=== PATIENT | male | born 1990 | race Caucasian/White ===

== ENCOUNTER 2023-11-13 00:49 | Inpatient (IN) ==
--- NOTE | 2023-11-13 01:16 | Emergency Department Note ---
History of Present Illness General Chief complaint: Abdominal Pain Stated complaint: JAUNDICE, ABDOMINAL PAIN Time Seen by Provider: 11/13/23 00:59 History of Present Illness Maximum Pain Intensity: 2 This 33-year-old male who drinks daily and stopped drinking alcohol 4 days ago presents ER complaining of fatigue, jaundice and abdominal fullness with diarrhea. Patient denies chest pain, dyspnea, fever, chills, cough, congestion, flulike illness. No black or blood in the stool. He does vape and uses medical marijuana. No other drug use. No Tylenol ingestion. Home Medications Medication Instructions Recorded Confirmed Type ascorbic acid (vitamin C) 1,000 mg 1 g PO QAM 11/13/23 11/13/23 History tablet (Vitamin C) cholecalciferol (vitamin D3) 50 50 mcg PO DAILY 11/13/23 11/13/23 History mcg (2,000 unit) capsule (Vitamin D3) citalopram 40 mg tablet 40 mg PO QAM 11/13/23 11/13/23 History clonazepam 1 mg tablet 0.5 - 1 mg PO DIRECTED 11/13/23 11/13/23 History dextroamphetamine-amphetamine ER 30 mg PO QAM 11/13/23 11/13/23 History 30 mg 24hr capsule,extend release diphenhydramine HCl 25 mg tablet 25 - 50 mg PO HS PRN Sleep 11/13/23 11/13/23 History (Benadryl Allergy) multivitamin 1 tab PO DAILY 11/13/23 11/13/23 History Allergies Allergy/AdvReac Type Severity Reaction Status Date / Time No Known Allergies Allergy Unverified 11/13/23 02:49 Past Med/Surg History Problem List (Updated 11/13/23 @ 02:36 by Adali Robin PA-C) Hypomagnesemia (Acute) Acute hypokalemia (Acute) Acute alcoholism (Acute) Hyperbilirubinemia (Acute) No significant past surgical history ADD (attention deficit disorder) Dental abscess (Acute) Social History Smoking Status: Current every day smoker Tobacco Type: E-cigarettes / Vaping Preferred Language: Cymro marital status: Single Feels Safe at Home: Yes Review of Systems A total of 10 systems reviewed and were otherwise negative Physical Exam Vital Signs Vital Signs - 24 hr 11/13/23 00:50 11/13/23 01:10 11/13/23 01:27 Temperature 36.5 C Temperature Source Temporal Artery Scan Pulse Rate 96 H 91 H Pulse Rate [Apical] Pulse Rhythm [Apical] Pulse Strength [Apical] Respiratory Rate 18 Respiratory Effort / Characteristics Non-Labored Spontaneous Respiratory Depth Normal Respiratory Pattern Regular Blood Pressure 143/82 H Blood Pressure [Right Arm] Blood Pressure Mean 102 Blood Pressure Mean [Right Arm] Blood Pressure Position Sitting Blood Pressure Position [Right Arm] Pulse Oximetry 95 98 Oxygen Delivery Method Room Air Room Air Sepsis Recent Fever Within 48 Hours No Sepsis New/Unexplained Change in Mental Status N/A Sepsis Action Taken by Nursing No Action Required 11/13/23 02:50 Temperature Temperature Source Pulse Rate Pulse Rate [Apical] 87 Pulse Rhythm [Apical] Regular Pulse Strength [Apical] Normal Respiratory Rate 16 Respiratory Effort / Characteristics Non-Labored Spontaneous Respiratory Depth Normal Respiratory Pattern Regular Blood Pressure Blood Pressure [Right Arm] 125/94 Blood Pressure Mean Blood Pressure Mean [Right Arm] 104 Blood Pressure Position Blood Pressure Position [Right Arm] Lying Pulse Oximetry 97 Oxygen Delivery Method Room Air Sepsis Recent Fever Within 48 Hours Sepsis New/Unexplained Change in Mental Status Sepsis Action Taken by Nursing VITALS: Vitals are noted on the nurse's note and reviewed by myself. Vital signs stable. GENERAL: Jaundiced male, in no acute distress, nondiaphoretic, well-developed well-nourished. SKIN: Capillary reflex less than 2 seconds. HEENT: Normocephalic. PERRLA. EOMI. Nares patent. Mucous membranes moist. Neck is supple without nuchal rigidity. HEART: Regular rate and rhythm LUNGS: Clear to auscultation bilaterally without wheezes, rales or rhonchi. No retractions or accessory muscle use. ABDOMEN: Positive bowel sounds x 4. Normal tympanic percussion. Soft, nontender, without masses. Juan sign negative. No guarding or rebound tenderness. no CVA tenderness MUSCULOSKELETAL: No gross musculoskeletal defects. NEURO: Patient was alert and oriented to person place and time. No focal neurological deficits. Course Administered Medications Multivitamins 10 ml/ Thiamine HCl 100 mg/ Folic Acid 1 mg/Sodium Chloride 1,011.2 mls @ 500 mls/hr IV .Q2H2M ONE Stop: 11/13/23 03:11 Last Admin: 11/13/23 02:19 Dose: 500 mls/hr Documented By: KULDEEP Magnesium Sulfate/Dextrose (Magnesium Sulfate / D5w) 1 gm in 100 mls @ 100 mls/hr IV Q1H GUME Stop: 11/13/23 04:23 Last Admin: 11/13/23 02:40 Dose: 100 mls/hr Documented By: KULDEEP Potassium Chloride (K [place] / Wtr) 10 meq in 100 mls @ 100 mls/hr IV Q1H GUME Stop: 11/13/23 04:29 Last Admin: 11/13/23 02:40 Dose: 100 mls/hr Documented By: KULDEEP Discontinued Medications Sodium Chloride (Nss) 1,000 mls @ 999 mls/hr IV .Q1H1M GUME Stop: 11/13/23 02:15 Last Infusion: 11/13/23 02:20 Dose: Infused Documented By: Admin: 11/13/23 01:19 Dose: 999 mls/hr Documented By: BRANDON Pantoprazole Sodium 40 mg/ (Syringe) 10 mls @ 5 mls/min IV NOW ONE Stop: 11/13/23 01:17 Last Admin: 11/13/23 02:20 Dose: 5 mls/min Documented By: KULDEEP Ioversol (Optiray 320 100ml) 100 ml IV ONCE ONE Stop: 11/13/23 01:46 Last Admin: 11/13/23 01:46 Dose: 93 ml Documented By: KARSON Lorazepam (Lorazepam 1 Mg/1 Ml Syr Ed Inj Use) 1 mg IV ONE STA Stop: 11/13/23 01:11 Last Admin: 11/13/23 01:18 Dose: 1 mg Documented By: BRANDON Nicotine (Nicotine 21 Mg/24 Hr Tdsy) 1 patch TD NOW STA Stop: 11/13/23 01:11 Last Admin: 11/13/23 01:18 Dose: 1 patch Documented By: BRANDON Potassium Chloride (Potassium Chloride Crtab 20 Meq Tabcr) 40 meq PO NOW STA Stop: 11/13/23 02:25 Last Admin: 11/13/23 02:39 Dose: 40 meq Documented By: KULDEEP Critical Care Time Critical Care Time: Yes Total Critical Care Time: 35 I have personally spent 35 minutes of critical care time in the direct management of this patient. This includes bedside care, interpretation of diagnostic studies, and testing, discussion with consultants, patient, and family members, and other required patient management activities. This 35 minutes is in excess of all separately billable procedures. Medical Decision Making Medical Records Attestation: I reviewed the patient's medical records. Home Medications Current Medication List: was personally reviewed by me Laboratory Data Attestation: I reviewed the patient's lab results. 11/13/23 01:14 11/13/23 01:14 Lab Results 11/13/23 11/13/23 11/13/23 Range/Units 01:14 01:25 02:22 WBC 11.57 H (4.8-10.8) K/ul RBC 3.18 L (4.70-6.10) M/uL Hgb 10.8 L (14.0-18.0) g/dl POC Hgb 11.6 L (14.0-18.0) g/dl Hct 31.6 L (42.0-52.0) % POC Hct 34 L (42-52) % MCV 99.4 (80.0-100.0) fL MCH 34.0 (25.0-34.0) pg MCHC 34.2 (32.0-36.0) g/dL RDW Std Deviation 66.8 H (36.4-46.3) fL RDW Coeff of Mirna 19.2 H (11.5-14.5) % Plt Count 224 (130-400) K/uL MPV 12.8 H (9.4-12.4) fL Immature Gran % (Auto) 5.0 % Neut % (Auto) 61.2 % Lymph % (Auto) 19.0 % [place] % (Auto) 12.7 % Eos % (Auto) 0.8 % Baso % (Auto) 1.3 % Neut # (Auto) 7.08 H (1.40-6.50) K/uL Lymph # (Auto) 2.20 (1.20-3.40) K/uL [place] # (Auto) 1.47 H (0.11-0.59) K/uL Eos # (Auto) 0.09 (0.00-0.50) K/uL Baso # (Auto) 0.15 (0.00-0.20) K/uL Immature Gran # (Auto) 0.58 H (0.01-0.20) K/uL Absolute Nucleated RBC 0.25 H (0.00-0.12) K/uL Nucleated RBC % (auto) 2.2 % Polychromasia 1+ Anisocytosis Present Pappenheimer Bodies 1+ Target Cells 1+ PT 13.0 H (9.0-12.0) Seconds INR 1.2 H (0.9-1.1) APTT 26 (21-31) Seconds PTT Ratio 1.0 POC Sodium 135 (135-144) mmol/L Sodium 132 L (136-145) mmol/L POC Potassium 3.0 L (3.3-5.0) mmol/L Potassium 2.8 L (3.5-5.1) mmol/L POC Chloride 100 L (101-112) mmol/L Chloride 95 L (98-107) mmol/L Carbon Dioxide 25 (21-32) mmol/L POC Total CO2 24 (24-31) mmol/L Anion Gap 12 H (3-11) POC Anion Gap 16.0 (16-25) mmol/L POC BUN 6 L (7-18) mg/dl BUN 9 (6-23) mg/dl Creatinine TNP POC Creatinine 0.7 (0.6-1.3) mg/dl Est Cr Clr Drug Dosing Not Reportable Est GFR ( Amer) Not Reportable Est GFR (Non-Af Amer) Not Reportable BUN/Creatinine Ratio TNP Glucose 108 H (70-99(Fasting)) mg/dl POC Glucose (other) 118 H (70-99) mg/dl Lactate 1.1 (0.4-2.0) mmol/L Calcium 7.8 L (8.6-10.3) mg/dl POC Ioniz Calcium Aundrea 0.93 L (1.12-1.32) mmol/l Magnesium 1.2 L (1.7-2.4) mg/dl Total Bilirubin 33.3 H (0.2-1.0) mg/dl AST 224 H (13-39) U/L ALT 114 H (7-52) U/L Alkaline Phosphatase TNP Total Creatine Kinase 121 (30-223) U/L Troponin I High Sens 12.3 (0-20) pg/ml Total Protein 6.1 (6.0-8.3) gm/dl Albumin 3.6 (3.4-5.0) gm/dl Globulin 2.5 (2.5-4.0) gm/dl Albumin/Globulin Ratio 1.4 (0.9-2) TSH 6.345 H (0.300-4.500) uIu/ml Free T4 1.12 (0.61-1.60) ng/dl Urine Color Dark Yellow Urine Appearance Cloudy A (Clear) Urine pH 6.5 (4.5-7.5) Ur Specific [place] 1.026 (1.000-1.030) Urine Protein 1+ H (Negative) Urine Glucose (UA) Negative (Negative) Urine Ketones Negative (Negative) Urine Blood Negative (Negative) Urine Nitrite Positive A (Negative) Urine Bilirubin 3+ H (Negative) Urine Urobilinogen Negative (Negative) Ur Leukocyte Esterase 1+ H (Negative) Urine WBC (Auto) 0-5 (0-5) /hpf Urine RBC (Auto) 0-2 (0-4) /hpf U Hyaline Cast (Auto) 0-2 (0-5) /lpf U Epithel Cells (Auto) 6-10 (0-5) /lpf Urine Bacteria (Auto) 1+ H (Negative) Ur Renal Epithelial Cell Present A (None Presnt) /lpf Urine Mucus Present A (None Prsent) Salicylates TNP Acetaminophen TNP Ethyl Alcohol mg/dL < 10.0 (<10.0) mg/dl Monoscreen Negative (Negative) Imaging Data Attestation: I personally reviewed and interpreted this imaging study as follows: Radiologist's Impression: Abdomen/Pelvis CT 11/13/23 01:10 Exam(s): CT ABDOMEN + PELVIS With Contrast IV Amt: 93 ml optiray 320 EXAM: CT Abdomen and Pelvis With Intravenous Contrast CLINICAL HISTORY: Reason for exam: jaundice, abd pain. TECHNIQUE: Axial computed tomography images of the abdomen and pelvis with intravenous contrast. Automated exposure control was utilized for the study. A dose lowering technique was utilized adhering to the principles of ALARA. CONTRAST: Patient received 93 ml optiray 320 of IV contrast COMPARISON: No relevant prior studies available. FINDINGS: Lung bases: Unremarkable. No mass. No consolidation. ABDOMEN: Liver: Hepatic steatosis. Gallbladder and bile ducts: Contracted gallbladder. No calcified stones. No ductal dilation. Pancreas: Unremarkable. No mass. No ductal dilation. Spleen: Unremarkable. No splenomegaly. Adrenals: Unremarkable. No mass. Kidneys and ureters: Unremarkable. No solid mass. No hydronephrosis. Stomach and bowel: Unremarkable. No obstruction. No mucosal thickening. PELVIS: Appendix: Normal appendix. Bladder: Unremarkable. No mass. Reproductive: Unremarkable as visualized. ABDOMEN and PELVIS: Intraperitoneal space: Unremarkable. No free air. No significant fluid collection. Bones/joints: No acute fracture. No dislocation. Soft tissues: Unremarkable. Vasculature: Unremarkable. No abdominal aortic aneurysm. Lymph nodes: Unremarkable. No enlarged lymph nodes. IMPRESSION: No acute findings in the abdomen or pelvis. Electronically signed by: Isaias Mata MD 11/13/23 02:48 AM [place] Narrative Prior records/ancillary studies reviewed and summarized above. Nursing notes reviewed. Additional history obtained from family. The patient's history was concerning for jaundice and abdominal fullness and nonalcoholic. Differential diagnosis: Etiologies such as liver failure, metabolic, infection, hypo/hyperglycemia, electrolyte abnormalities, cardiac sources, intracerebral event, toxicologic, neurologic, as well as others were entertained. Physical examination: As above. ER treatment provided: IV Lock An order was placed for continuous cardiac monitoring. The monitor shows a rate of 60-100 with a sinus rhythm per my interpretation. Protonix, banana bag, fluids, Ativan ordered Potassium and magnesium were replaced On reassessment the patient felt better. Diagnostics interpretation by me: ECG: Ordered for weakness EKG: Poor baseline, normal sinus, normal intervals, no acute ST-T wave changes. Impression normal sinus rhythm independently interpreted by myself The labs Independently Interpreted by myself revealed low magnesium Hypokalemia Mild anemia Elevated LFTs INR 1.2 Imaging studies: Chest x-ray with no acute consolidation, pneumothorax or free air per my independent interpretation CT as above MELD-Na score is 25 which is 14 to 15% 90-day mortality Consultation: A consultation was placed with the hospitalist. The case was discussed and diagnostics were reviewed. The patient was evaluated in the ER for further treatment. Exam and history seem consistent with hyperbilirubinemia with concerns for developing liver failure. MELD score was 25. Medicine was consulted and case discussed. Patient will be admitted to the medical service. Electrolytes were replaced as above. Patient was hydrated as above. Patient is agreeable treatment plan of admission. By the evaluation outlined above emergent etiologies such as infection, cardiac sources, intracerebral event, neurologic, abnormalities blood glucose, as well as others were deemed relatively unlikely. The pt informed about the findings as listed above. All questions were answered and pleased with the treatment. The chart was completed utilizing [employer] Speech voice recognition software. Grammatical errors, random word insertions, pronoun errors, and incomplete sentences are an occassional consequence of this system due to software limitations, ambient noise, and hardware issues. Any formal questions or concerns about the content, text, or information contained within the body of this dictation should be directly addressed to the physician child care assistant for clarification. Impression & Plan Hyperbilirubinemia, Acute alcoholism, Acute hypokalemia, Hypomagnesemia Discharge Plan Visit Data Chief Complaint: Abdominal Pain Stated Complaint: JAUNDICE, ABDOMINAL PAIN ED Provider: Mandi Choi ED Midlevel Provider: Adali Robin Discharge Problem: Hyperbilirubinemia, Acute alcoholism, Acute hypokalemia, Hypomagnesemia Patient Disposition: Admitted As Inpatient Condition: Fair Forms Stand Alone Forms: [facility] Prescriptions Prescriptions: No Action multivitamin Tablet 1 tab PO DAILY ascorbic acid (vitamin C) [Vitamin C] 1,000 mg Tablet 1 g PO QAM citalopram 40 mg tablet 40 mg PO QAM clonazepam 1 mg tablet 0.5 - 1 mg PO DIRECTED Rx Instructions: Take 1 tab AM & PM, TAKE 0.5 TAB @ NOON dextroamphetamine-amphetamine 30 mg capsule,extended release 24hr 30 mg PO QAM cholecalciferol (vitamin D3) [Vitamin D3] 50 mcg (2,000 unit) Capsule 50 mcg PO DAILY diphenhydramine HCl [Benadryl Allergy] 25 mg Tablet 25 - 50 mg PO HS PRN (Reason: Sleep) Referrals Referrals: PCP,NO [Physician] -
[2023-11-13] MEDS: NICOTINE 21 MG/24 HR TDSY TD STA (01:18)
[2023-11-13] MEDS: LORazepam 1 MG/1 ML SYR ED Inj Use IV STA (01:18)
[2023-11-13] MEDS: SODIUM CHLORIDE 0.9% 1,000 ML IV SCH ×2 (01:19→05:37)
[2023-11-13 01:39] LABS: iSTAT Creatinine 0.7 mg/dl (0.6-1.3); iSTAT Hemoglobin 11.6 g/dl (14.0-18.0); iSTAT Ionized Calcium 0.93 mmol/l (1.12-1.32)
[2023-11-13] MEDS: OPTIRAY 320 100ml IV ONE (01:46)
[2023-11-13 02:16] LABS: Alanine Aminotransferase 114 U/L (7-52); Albumin Globulin Ratio 1.4 (0.9-2); Albumin Level 3.6 gm/dl (3.4-5.0); Anion Gap 12 (3-11); Aspartate Aminotransferase 224 U/L (13-39); Bilirubin,Total 33.3 mg/dl (0.2-1.0); Calcium 7.8 mg/dl (8.6-10.3); Carbon Dioxide 25 mmol/L (21-32); Chloride 95 mmol/L (98-107); Creatine Kinase 121 U/L (30-223); Globulin 2.5 gm/dl (2.5-4.0); Glucose 108 mg/dl (70-99(Fasting)); Potassium 2.8 mmol/L (3.5-5.1); Sodium 132 mmol/L (136-145); Thyroid Stimulating Hormone 6.345 uIu/ml (0.300-4.500); Total Protein 6.1 gm/dl (6.0-8.3); Troponin I High Sensitivity 12.3 pg/ml (0-20)
[2023-11-13] MEDS: MULTI-VITAMIN INFUSION 10 ML, THIAMINE HCL 100 MG, FOLIC ACID 1 MG in SODIUM CHLORIDE 0... IV ONE (02:19)
[2023-11-13] MEDS: PANTOprazole 40 MG in SYRINGE 0 ML IV ONE (02:20)
[2023-11-13 02:25] LABS: Anisocytosis Present; Basophils # (auto) 0.15 K/uL (0.00-0.20); Basophils % (auto) 1.3 %; Eosinophils # (auto) 0.09 K/uL (0.00-0.50); Eosinophils % (auto) 0.8 %; Hematocrit (blood only) 31.6 % (42.0-52.0); Hemoglobin 10.8 g/dl (14.0-18.0); Immature Granulocytes # (auto) 0.58 K/uL (0.01-0.20); Mean Corpuscular Hgb Conc 34.2 g/dL (32.0-36.0); Mean Corpuscular Volume 99.4 fL (80.0-100.0); Mean Platelet Volume 12.8 fL (9.4-12.4); Monocytes # (auto) 1.47 K/uL (0.11-0.59); Monocytes % (auto) 12.7 %; Neutrophils # (auto) 7.08 K/uL (1.40-6.50); Neutrophils % (auto) 61.2 %; Nucleated RBC # (auto) 0.25 K/uL (0.00-0.12); Nucleated RBC % (auto) 2.2 %; Pappenheimer Bodies 1+; Platelet Count 224 K/uL (130-400); Polychromasia 1+; RDW Coefficient of Variation 19.2 % (11.5-14.5); RDW Standard Deviation 66.8 fL (36.4-46.3); Red Blood Count 3.18 M/uL (4.70-6.10); Target Cells 1+; White Blood Count 11.57 K/ul (4.8-10.8)
[2023-11-13 02:27] LABS: Appearance Urine Cloudy (Clear); Bilirubin Urine 3+ (Negative); Blood Urine Negative (Negative); Color Urine Dark Yellow; Glucose Urine UA Negative (Negative); Ketones Urine Negative (Negative); Leukocyte Esterase Urine 1+ (Negative); Nitrite Urine Positive (Negative); Protein Urine 1+ (Negative); Specific Gravity Urine 1.026 (1.000-1.030); Urobilinogen Urine Negative (Negative); pH Urine 6.5 (4.5-7.5)
[2023-11-13 02:37] LABS: INR 1.2 (0.9-1.1); Partial Thromboplastin Time 26 Seconds (21-31)
[2023-11-13 02:39] LABS: Cast Urine Automated 0-2 /lpf (0-5); RBC Urine Automated 0-2 /hpf (0-4); WBC Urine Automated 0-5 /hpf (0-5)
[2023-11-13] MEDS: POTASSIUM CHLORIDE CRTAB 20 MEQ TABCR PO STA (02:39)
[2023-11-13 02:40] LABS: Bacteria Urine Automated 1+ (Negative); Mucus Urine Present (None Prsent); Renal Epithelial Cells Urine Present /lpf (None Presnt)
[2023-11-13] MEDS: POTASSIUM CHLORIDE / WTR 10 MEQ/100 ML PLCT IV SCH ×2 (02:40→05:40)
[2023-11-13] MEDS: MAGNESIUM SULFATE / D5W 1 GM/100 ML BAG IV SCH (02:40)
--- NOTE | 2023-11-13 02:49 | CT Scan Report ---
Exam(s): CT ABDOMEN + PELVIS With Contrast IV Amt: 93 ml optiray 320 EXAM: CT Abdomen and Pelvis With Intravenous Contrast CLINICAL HISTORY: Reason for exam: jaundice, abd pain. TECHNIQUE: Axial computed tomography images of the abdomen and pelvis with intravenous contrast. Automated exposure control was utilized for the study. A dose lowering technique was utilized adhering to the principles of ALARA. CONTRAST: Patient received 93 ml optiray 320 of IV contrast COMPARISON: No relevant prior studies available. FINDINGS: Lung bases: Unremarkable. No mass. No consolidation. ABDOMEN: Liver: Hepatic steatosis. Gallbladder and bile ducts: Contracted gallbladder. No calcified stones. No ductal dilation. Pancreas: Unremarkable. No mass. No ductal dilation. Spleen: Unremarkable. No splenomegaly. Adrenals: Unremarkable. No mass. Kidneys and ureters: Unremarkable. No solid mass. No hydronephrosis. Stomach and bowel: Unremarkable. No obstruction. No mucosal thickening. PELVIS: Appendix: Normal appendix. Bladder: Unremarkable. No mass. Reproductive: Unremarkable as visualized. ABDOMEN and PELVIS: Intraperitoneal space: Unremarkable. No free air. No significant fluid collection. Bones/joints: No acute fracture. No dislocation. Soft tissues: Unremarkable. Vasculature: Unremarkable. No abdominal aortic aneurysm. Lymph nodes: Unremarkable. No enlarged lymph nodes. IMPRESSION: No acute findings in the abdomen or pelvis. Electronically signed by: Isaias Mata MD 11/13/23 02:48 AM
[2023-11-13 03:00] LABS: T4 Free Thyroxine 1.12 ng/dl (0.61-1.60)
[2023-11-13 03:02] LABS: Blood Urea Nitrogen 9 mg/dl (6-23); Magnesium 1.2 mg/dl (1.7-2.4)
[2023-11-13 03:17] LABS: Amphetamines+Metham, Urine Pos (Neg); Barbiturates, Urine Neg (Neg); Benzodiazepine, Urine Neg (Neg); Cocaine, Urine Neg (Neg); Fentanyl, Urine Neg (Neg); MDMA (Ecstacy), Urine Pos (Neg); Marijuana, Urine Pos (Neg); Methadone, Urine Neg (Neg); Opiate, Urine Neg (Neg); Phencyclidine, Urine Neg (Neg)
--- NOTE | 2023-11-13 04:21 | History & Physical Report ---
Date of Service November 13, 2023 Assessment & Plan (1) Acute alcoholic liver disease: Plan: 33-year-old male with past medical history significant for major depression, ongoing alcoholism, PTSD, panic disorder, social anxiety disorder, GERD anxiety disorder, concentration deficit, history of opioid use history of drugs in the past and was on Suboxone which was tapered off two and half years ago comes with abdominal pain going on for about 1 month and also noticed jaundice for last 1 week and feeling weak ,fatigue ,tired and came to ER and found to have total bilirubin 33.3, AST 224, ALT 114, UA is positive, potassium 2.[address] abdomen pelvis with IV contrast shows hepatic steatosis otherwise unremarkable study. Patient denies any headache. No dizziness. Vision is okay. No runny nose. No cough. No sore throat. Currently no chest pain or shortness of breath. No nausea. Some abdominal discomfort. Has chronic diarrhea. A week ago he had black stools. States has some difficulty micturition says he noticed Some blood in the urine. Afebrile. States he is drinking alcohol since age of 15 on and off. But since last 2.5 years ago when he was tapered off Suboxone he started drinking heavily. Currently drinks 6 beers or half bottle of vodka daily. Vapes every day. Has medical marijuana. States he stopped drinking 4 days ago. Says when he came into the ER he was slightly shaky and got Ativan. Mother is in the room. Alert and oriented x 3 and able to give history. Possible alcoholic liver disease Acute liver injury Most likely from alcoholism as AST almost double than ALT ,and AST and ALT less than 500 and ongoing alcoholism Total bilirubin 33.3 AST 224, ALT 114 INR 1.2 MELD score 22 Discriminant function 38 Denies taking any Tylenol. f/u Tylenol level Empirically ordered N-acetylcysteine CT abdomen pelvis with IV contrast shows hepatic steatosis otherwise unremarkable Follow-up acute hepatitis panel Consult GI for further recommendations Follow repeat labs Close monitor Alcoholism Received banana bag IV thiamine and IV folic acid Alcohol withdrawal protocol with gabapentin and IV Ativan as needed Close monitor Hypokalemia and hypomagnesia Will replace and follow labs Hyponatremia Sodium 132 Placed on normal saline at rate of 50 mill per hour Will follow labs UTI Empiric Rocephin Will follow cultures Questionable GI bleed States had black stool about a week ago IV Protonix twice daily Stool Hemoccult studies Hemoglobin 10.8 Will follow labs Diarrhea Will follow stool studies Anxiety Continue home Klonopin Depression PTSD Panic disorder Hold Home medications for now Drug screen positive for Marijuana Patient has medical marijuana Also positive for MDMA and amphetamine Patient on dextroamphetamine/amphetamine at home DVT prophylaxis SCDs for now Disposition Telemetry Full code. History of Present Illness Chief Complaint: Jaundice, alcoholism, abdominal pain Primary Care Provider: Edna Faulkner MD 33-year-old male with past medical history significant for major depression, ongoing alcoholism, PTSD, panic disorder, social anxiety disorder, GERD anxiety disorder, concentration deficit, history of opioid use history of drugs in the past and was on Suboxone which was tapered off two and half years ago comes with abdominal pain going on for about 1 month and also noticed jaundice for last 1 week and feeling weak ,fatigue ,tired and came to ER and found to have total bilirubin 33.3, AST 224, ALT 114, UA is positive, potassium 2.[address] abdomen pelvis with IV contrast shows hepatic steatosis otherwise unremarkable study. Patient denies any headache. No dizziness. Vision is okay. No runny nose. No cough. No sore throat. Currently no chest pain or shortness of breath. No nausea. Some abdominal discomfort. Has chronic diarrhea. A week ago he had black stools. States has some difficulty micturition says he noticed Some blood in the urine. Afebrile. States he is drinking alcohol since age of 15 on and off. But since last 2.5 years ago when he was tapered off Suboxone he started drinking heavily. Currently drinks 6 beers or half bottle of vodka daily. Vapes every day. Has medical marijuana. States he stopped drinking 4 days ago. Says when he came into the ER he was slightly shaky and got Ativan. Mother is in the room. Alert and oriented x 3 and able to give history. Past medical history. As mentioned above Past surgical history. None Social history. Vapes nicotine. Has medical marijuana. Drinks 6 packs to half bottle of vodka daily. History of heroin in the past. Family history. No family history on file. Allergies Allergy/AdvReac Type Severity Reaction Status Date / Time No Known Allergies Allergy Unverified 11/13/23 02:49 Home Medications Medication Instructions Recorded Confirmed Type ascorbic acid (vitamin C) 1,000 mg 1 g PO QAM 07/23/24 07/23/24 History tablet (Vitamin C) cholecalciferol (vitamin D3) 50 50 mcg PO DAILY 11/13/23 11/13/23 History mcg (2,000 unit) capsule (Vitamin D3) citalopram 40 mg tablet 40 mg PO QAM 11/13/23 11/13/23 History clonazepam 1 mg tablet 0.5 - 1 mg PO DIRECTED 11/13/23 11/13/23 History dextroamphetamine-amphetamine ER 30 mg PO QAM 11/13/23 11/13/23 History 30 mg 24hr capsule,extend release diphenhydramine HCl 25 mg tablet 25 - 50 mg PO HS PRN Sleep 11/13/23 11/13/23 History (Benadryl Allergy) multivitamin 1 tab PO DAILY 11/13/23 11/13/23 History Past Med/Surg History Problem List (Updated 11/13/23 @ 04:31 by Jose Solorzano MD) Acute alcoholic liver disease Hypomagnesemia (Acute) Acute hypokalemia (Acute) Acute alcoholism (Acute) Hyperbilirubinemia (Acute) No significant past surgical history ADD (attention deficit disorder) Dental abscess (Acute) Social History Smoking Status: Former smoker Tobacco Type: E-cigarettes / Vaping Hx Alcohol Use: Yes Alcohol type: beer and hard liquor Hx Substance Use: No Preferred Language: Kyrgyz [employer] Managerial Supervisor Required: No Beliefs That Will Affect Care: None marital status: Single Current Living Situation: Parent Feels Safe at Home: Yes Review of Systems Review of Systems: All systems reviewed & are unremarkable except as noted in HPI & below Physical Exam Physical Exam: General-Not in acute distress Head- atraumatic Eyes- PERRL,Icterus present ENT- oropharynx clear Neck- supple, no JVD. Lungs- clear to auscultation no wheezing or crackles Heart- regular rhythm; no murmur, no gallop. Abdomen- normal bowel sounds, soft, mild diffuse tenderness, no distension Extremities- no pretibial edema, no erythema seen Neuro- alert, oriented x 3; PERRL, no facial palsy; no dysarthria; moves extremities. Skin- diffuse yellow discoloration Results & Data Results & Data Vital Signs (Past 12 Hours) Vital Signs Temp Pulse Pulse Resp BP BP Pulse Ox 11/13/23 03:00 82 25 H 111/73 94 11/13/23 02:57 79 22 125/94 96 11/13/23 02:50 87 16 125/94 97 11/13/23 01:27 91 H 11/13/23 01:10 98 11/13/23 00:50 36.5 C 96 H 18 143/82 H 95 O2 Del Method 11/13/23 03:00 11/13/23 02:57 11/13/23 02:50 Room Air 11/13/23 01:27 11/13/23 01:10 Room Air 11/13/23 00:50 Room Air Diagnostic Findings Laboratory Results WBC 11.57 K/ul (4.8-10.8) H 11/13/23 01:14 RBC 3.18 M/uL (4.70-6.10) L 11/13/23 01:14 Hgb 10.8 g/dl (14.0-18.0) L 11/13/23 01:14 POC Hgb 11.6 g/dl (14.0-18.0) L 11/13/23 01:25 Hct 31.6 % (42.0-52.0) L 11/13/23 01:14 POC Hct 34 % (42-52) L 11/13/23 01:25 MCV 99.4 fL (80.0-100.0) 11/13/23 01:14 MCH 34.0 pg (25.0-34.0) 11/13/23 01:14 MCHC 34.2 g/dL (32.0-36.0) 11/13/23 01:14 RDW Std Deviation 66.8 fL (36.4-46.3) H 11/13/23 01:14 RDW Coeff of Mirna 19.2 % (11.5-14.5) H 11/13/23 01:14 Plt Count 224 K/uL (130-400) 11/13/23 01:14 MPV 12.8 fL (9.4-12.4) H 11/13/23 01:14 Immature Gran % (Auto) 5.0 % 11/13/23 01:14 Neut % (Auto) 61.2 % 11/13/23 01:14 Lymph % (Auto) 19.0 % 11/13/23 01:14 Parmer % (Auto) 12.7 % 11/13/23 01:14 Eos % (Auto) 0.8 % 11/13/23 01:14 Baso % (Auto) 1.3 % 11/13/23 01:14 Neut # (Auto) 7.08 K/uL (1.40-6.50) H 11/13/23 01:14 Lymph # (Auto) 2.20 K/uL (1.20-3.40) 11/13/23 01:14 Parmer # (Auto) 1.47 K/uL (0.11-0.59) H 11/13/23 01:14 Eos # (Auto) 0.09 K/uL (0.00-0.50) 11/13/23 01:14 Baso # (Auto) 0.15 K/uL (0.00-0.20) 11/13/23 01:14 Immature Gran # (Auto) 0.58 K/uL (0.01-0.20) H 11/13/23 01:14 Absolute Nucleated RBC 0.25 K/uL (0.00-0.12) H 11/13/23 01:14 Nucleated RBC % (auto) 2.2 % 11/13/23 01:14 Polychromasia 1+ 11/13/23 01:14 Anisocytosis Present 11/13/23 01:14 Pappenheimer Bodies 1+ 11/13/23 01:14 Target Cells 1+ 11/13/23 01:14 PT 13.0 Seconds (9.0-12.0) H 11/13/23 01:14 INR 1.2 (0.9-1.1) H 11/13/23 01:14 APTT 26 Seconds (21-31) 11/13/23 01:14 PTT Ratio 1.0 11/13/23 01:14 POC Sodium 135 mmol/L (135-144) 11/13/23 01:25 Sodium 132 mmol/L (136-145) L 11/13/23 01:14 POC Potassium 3.0 mmol/L (3.3-5.0) L 11/13/23 01:25 Potassium 2.8 mmol/L (3.5-5.1) L 11/13/23 01:14 POC Chloride 100 mmol/L (101-112) L 11/13/23 01:25 Chloride 95 mmol/L (98-107) L 11/13/23 01:14 Carbon Dioxide 25 mmol/L (21-32) 11/13/23 01:14 POC Total CO2 24 mmol/L (24-31) 11/13/23 01:25 Anion Gap 12 (3-11) H 11/13/23 01:14 POC Anion Gap 16.0 mmol/L (16-25) 11/13/23 01:25 POC BUN 6 mg/dl (7-18) L 11/13/23 01:25 BUN 9 mg/dl (6-23) 11/13/23 01:14 Creatinine TNP 11/13/23 01:14 POC Creatinine 0.7 mg/dl (0.6-1.3) 11/13/23 01:25 Est Cr Clr Drug Dosing Not Reportable 11/13/23 01:14 Est GFR ( Amer) Not Reportable 11/13/23 01:14 Est GFR (Non-Af Amer) Not Reportable 11/13/23 01:14 BUN/Creatinine Ratio TNP 11/13/23 01:14 Glucose 108 mg/dl (70-99(Fasting)) H 11/13/23 01:14 POC Glucose (other) 118 mg/dl (70-99) H 11/13/23 01:25 Lactate 1.1 mmol/L (0.4-2.0) 11/13/23 02:22 Calcium 7.8 mg/dl (8.6-10.3) L 11/13/23 01:14 POC Ioniz Calcium Aundrea 0.93 mmol/l (1.12-1.32) L 11/13/23 01:25 Magnesium 1.2 mg/dl (1.7-2.4) L 11/13/23 01:14 Total Bilirubin 33.3 mg/dl (0.2-1.0) H 11/13/23 01:14 AST 224 U/L (13-39) H 11/13/23 01:14 ALT 114 U/L (7-52) H 11/13/23 01:14 Alkaline Phosphatase TNP 11/13/23 01:14 Total Creatine Kinase 121 U/L (30-223) 11/13/23 01:14 Troponin I High Sens 12.3 pg/ml (0-20) 11/13/23 01:14 Total Protein 6.1 gm/dl (6.0-8.3) 11/13/23 01:14 Albumin 3.6 gm/dl (3.4-5.0) 11/13/23 01:14 Globulin 2.5 gm/dl (2.5-4.0) 11/13/23 01:14 Albumin/Globulin Ratio 1.4 (0.9-2) 11/13/23 01:14 TSH 6.345 uIu/ml (0.300-4.500) H 11/13/23 01:14 Free T4 1.12 ng/dl (0.61-1.60) 11/13/23 01:14 Urine Color Dark Yellow 11/13/23 01:14 Urine Appearance Cloudy (Clear) A 11/13/23 01:14 Urine pH 6.5 (4.5-7.5) 11/13/23 01:14 Ur Specific [place] 1.026 (1.000-1.030) 11/13/23 01:14 Urine Protein 1+ (Negative) H 11/13/23 01:14 Urine Glucose (UA) Negative (Negative) 11/13/23 01:14 Urine Ketones Negative (Negative) 11/13/23 01:14 Urine Blood Negative (Negative) 11/13/23 01:14 Urine Nitrite Positive (Negative) A 11/13/23 01:14 Urine Bilirubin 3+ (Negative) H 11/13/23 01:14 Urine Urobilinogen Negative (Negative) 11/13/23 01:14 Ur Leukocyte Esterase 1+ (Negative) H 11/13/23 01:14 Urine WBC (Auto) 0-5 /hpf (0-5) 11/13/23 01:14 Urine RBC (Auto) 0-2 /hpf (0-4) 11/13/23 01:14 U Hyaline Cast (Auto) 0-2 /lpf (0-5) 11/13/23 01:14 U Epithel Cells (Auto) 6-10 /lpf (0-5) 11/13/23 01:14 Urine Bacteria (Auto) 1+ (Negative) H 11/13/23 01:14 Ur Renal Epithelial Cell Present /lpf (None Presnt) A 11/13/23 01:14 Urine Mucus Present (None Prsent) A 11/13/23 01:14 Salicylates TNP 11/13/23 01:14 Urine Opiates Screen Neg (Neg) 11/13/23 Unknown Ur Methadone, Qual Neg (Neg) 11/13/23 Unknown Urine Fentanyl Screen Neg (Neg) 11/13/23 Unknown Acetaminophen TNP 11/13/23 01:14 Urine Barbiturates Neg (Neg) 11/13/23 Unknown Ur Phencyclidine (PCP) Neg (Neg) 11/13/23 Unknown U Amphetamin/Meth Scrn Pos (Neg) H 11/13/23 Unknown MDMA (Ecstasy) Screen Pos (Neg) H 11/13/23 Unknown U Benzodiazepines Scrn Neg (Neg) 11/13/23 Unknown Ur Cocaine Metabolite Neg (Neg) 11/13/23 Unknown U Marijuana (THC) Screen Pos (Neg) H 11/13/23 Unknown Ethyl Alcohol mg/dL < 10.0 mg/dl (<10.0) 11/13/23 02:22 Monoscreen Negative (Negative) 11/13/23 01:14 Impressions Abdomen/Pelvis CT 11/13/23 01:10 Exam(s): CT ABDOMEN + PELVIS With Contrast IV Amt: 93 ml optiray 320 EXAM: CT Abdomen and Pelvis With Intravenous Contrast CLINICAL HISTORY: Reason for exam: jaundice, abd pain. TECHNIQUE: Axial computed tomography images of the abdomen and pelvis with intravenous contrast. Automated exposure control was utilized for the study. A dose lowering technique was utilized adhering to the principles of ALARA. CONTRAST: Patient received 93 ml optiray 320 of IV contrast COMPARISON: No relevant prior studies available. FINDINGS: Lung bases: Unremarkable. No mass. No consolidation. ABDOMEN: Liver: Hepatic steatosis. Gallbladder and bile ducts: Contracted gallbladder. No calcified stones. No ductal dilation. Pancreas: Unremarkable. No mass. No ductal dilation. Spleen: Unremarkable. No splenomegaly. Adrenals: Unremarkable. No mass. Kidneys and ureters: Unremarkable. No solid mass. No hydronephrosis. Stomach and bowel: Unremarkable. No obstruction. No mucosal thickening. PELVIS: Appendix: Normal appendix. Bladder: Unremarkable. No mass. Reproductive: Unremarkable as visualized. ABDOMEN and PELVIS: Intraperitoneal space: Unremarkable. No free air. No significant fluid collection. Bones/joints: No acute fracture. No dislocation. Soft tissues: Unremarkable. Vasculature: Unremarkable. No abdominal aortic aneurysm. Lymph nodes: Unremarkable. No enlarged lymph nodes. IMPRESSION: No acute findings in the abdomen or pelvis. Electronically signed by: Isaias Mata MD 11/13/23 02:48 AM Code Status & VTE Plan VTE Prophylaxis Plan VTE Prophylaxis will be ordered: Yes
[2023-11-13] MEDS ORDERED: AcetylCYSTEINE 15,000 MG in DEXTROSE 5% 200 ML IV ONE (05:10)
[2023-11-13] MEDS ORDERED: AcetylCYSTEINE IV 21 HR REGIMEN (>40KG) IV STA (05:10)
[2023-11-13] MEDS ORDERED: LORazepam 3 MG in SYRINGE 1.5 ML IV PRN (05:10)
[2023-11-13] MEDS ORDERED: GABAPENTIN 1200MG ALCOHOL WITHDRAWAL LOAD PO STA (05:10)
[2023-11-13] MEDS ORDERED: NITROGLYCERIN SL 0.4 MG/TAB TAB SL PRN (05:10)
[2023-11-13] MEDS ORDERED: LORazepam 2 MG in SYRINGE 1 ML IV PRN (05:10)
[2023-11-13] MEDS ORDERED: Ativan IV Alcohol Withdrawal--Active Protocol IV PRN (05:10)
[2023-11-13] MEDS ORDERED: STAT IV/IM STA (05:10)
[2023-11-13] MEDS: MAGNESIUM SULFATE / D5W 1 GM/100 ML BAG IV ONE (05:44)
[2023-11-13] MEDS: GABAPENTIN 600 MG TAB PO ONE (05:51)
[2023-11-13] MEDS: AcetylCYSTEINE 15,000 MG in D5W 200mL (Load) IV ONE (06:20)
[2023-11-13 07:14] LABS: Hematocrit (blood only) 27.7 % (42.0-52.0); Hemoglobin 9.2 g/dl (14.0-18.0); Mean Corpuscular Hemoglobin 33.5 pg (25.0-34.0); Mean Corpuscular Hgb Conc 33.2 g/dL (32.0-36.0); Mean Corpuscular Volume 100.7 fL (80.0-100.0); Mean Platelet Volume 12.6 fL (9.4-12.4); Nucleated RBC # (auto) 0.19 K/uL (0.00-0.12); Nucleated RBC % (auto) 1.8 %; Platelet Count 195 K/uL (130-400); RDW Coefficient of Variation 19.2 % (11.5-14.5); RDW Standard Deviation 68.3 fL (36.4-46.3); Red Blood Count 2.75 M/uL (4.70-6.10); White Blood Count 10.52 K/ul (4.8-10.8)
--- NOTE | 2023-11-13 07:21 | XRay Report ---
XR chest 1V portable HISTORY: 33 years-old Male weakness COMPARISON: CT abdomen and pelvis of same day TECHNIQUE: AP view of the chest FINDINGS: Healing nondisplaced subacute to chronic appearing fracture of the posterior right seventh rib. No ac [place] displaced rib fracture identified. Lungs are clear. Cardiac silhouette is normal. No pneumothorax or pleural effusion. IMPRESSION: No acute process of the chest. ACT 112: Negative or not required by law. The above report was generated using voice recognition software. It may contain grammatical, syntax o r spelling errors. Electronically signed by: Arjun Nassar M.D. 11/13/2023 7:20 AM
[2023-11-13 07:33] LABS: INR 1.1 (0.9-1.1); Prothrombin Time 11.7 Seconds (9.0-12.0)
[2023-11-13 07:35] LABS: Basophils # (auto) 0.11 K/uL (0.00-0.20); Eosinophils # (auto) 0.08 K/uL (0.00-0.50); Eosinophils % (auto) 0.8 %; Immature Granulocytes # (auto) 0.55 K/uL (0.01-0.20); Immature Granulocytes % (auto) 5.2 %; Lymphocytes # (auto) 1.47 K/uL (1.20-3.40); Monocytes # (auto) 1.13 K/uL (0.11-0.59); Monocytes % (auto) 10.7 %; Neutrophils # (auto) 7.18 K/uL (1.40-6.50); Neutrophils % (auto) 68.3 %; Polychromasia 1+
[2023-11-13 07:54] LABS: Alanine Aminotransferase 98 U/L (7-52); Albumin Level 3.1 gm/dl (3.4-5.0); Anion Gap 9 (3-11); Aspartate Aminotransferase 184 U/L (13-39); Bilirubin,Total 26.7 mg/dl (0.2-1.0); Blood Urea Nitrogen 7 mg/dl (6-23); Calcium 7.2 mg/dl (8.6-10.3); Carbon Dioxide 24 mmol/L (21-32); Chloride 100 mmol/L (98-107); Glucose 126 mg/dl (70-99(Fasting)); Phosphorus 1.9 mg/dl (2.5-4.9); Potassium 3.4 mmol/L (3.5-5.1); Sodium 133 mmol/L (136-145); Total Protein 5.1 gm/dl (6.0-8.3)
[2023-11-13 07:55] LABS: Alkaline Phosphatase 280 U/L (34-104); Magnesium 2.1 mg/dl (1.7-2.4)
[2023-11-13 08:02] LABS: Bilirubin Direct 17.4 mg/dl (0-0.2)
[2023-11-13] MEDS: cefTRIAXone SODIUM 2,000 MG/50 ML BAG IV SCH (08:31)
[2023-11-13] MEDS: AcetylCYSTEINE 5,000mg in D5W 500mL (Maint Dose #1) IV SCH (08:31)
[2023-11-13] MEDS: FOLIC ACID 1 MG in SYRINGE 9.8 ML IV SCH (08:32)
[2023-11-13] MEDS: PANTOprazole 40 MG in SYRINGE 0 ML IV SCH (08:32)
[2023-11-13] MEDS: THIAMINE HCL 100 MG in SYRINGE 9 ML IV SCH (08:32)
[2023-11-13] MEDS: clonazePAM 1 MG TAB PO SCH (08:35)
[2023-11-13] MEDS ORDERED: POTASSIUM PHOS 3 MMOL/1 ML INFUSION IV STA (08:48)
[2023-11-13 10:11] LABS: Adenovirus F 40/41 PCR Not Detected (NotDetected); Astrovirus PCR Not Detected (NotDetected); Campylobacter PCR Not Detected (NotDetected); Cryptosporidium PCR Not Detected (NotDetected); Cyclospora cayetanensis PCR Not Detected (NotDetected); Entamoeba histolytica PCR Not Detected (NotDetected); Enteroaggregative E.coli(EAEC) Not Detected (NotDetected); Enteropathogenic E.coli (EPEC) Not Detected (NotDetected); Enterotoxigenic E.coli (ETEC) Not Detected (NotDetected); Giardia lamblia PCR Not Detected (NotDetected); Norovirus GI/GII PCR Not Detected (NotDetected); Plesiomonas shigelloides PCR Not Detected (NotDetected); Rotavirus A PCR Not Detected (NotDetected); Salmonella PCR Not Detected (NotDetected); Sapovirus PCR Not Detected (NotDetected); Shiga-like Toxin E.coli (STEC) Not Detected (NotDetected); Shigella/Enteroinvasive E.coli Not Detected (NotDetected); Vibrio cholerae PCR Not Detected (NotDetected); Vibrio species PCR Not Detected (NotDetected); Yersinia enterocolitica PCR Not Detected (NotDetected)
[2023-11-13] MEDS: GABAPENTIN 600 MG TAB PO SCH (10:36)
[2023-11-13] MEDS: POTASSIUM PHOSPHATE 21 MMOL in SODIUM CHLORIDE 0.9% 500 ML IV ONE (10:36)
--- NOTE | 2023-11-13 11:38 | Electrocardiogram Report ---
Test Reason : Blood Pressure : / mmHG Vent. Rate : 095 BPM Atrial Rate : 095 BPM P-R Int : 172 ms QRS Dur : 090 ms QT Int : 374 ms P-R-T Axes : 036 028 049 degrees QTc Int : 469 ms Normal sinus rhythm Low voltage QRS Borderline ECG When compared with ECG of 29-MAY-2012 07:48, No significant change was found Confirmed by Sanket Hui ([id number]) on 11/13/2023 11:38:23 AM Referred By: REFERRED SELF Confirmed By:Sanket Hui
[2023-11-13] MEDS: CITALOPRAM 40 MG TAB PO SCH (12:39)
[2023-11-13] MEDS: clonazePAM 0.5 MG TAB PO SCH (12:39)
[2023-11-13] MEDS: DEXTROAMPHETAMINE/AMPHETAMINE ER 10 MG CAP PO SCH (12:39)
[2023-11-13] MEDS: AcetylCYSTEINE 10,000 MG in D5W 1L (Maint Dose #2) IV SCH (13:25)
[2023-11-13] MEDS: prednisoLONE sod phosphate 15 MG/5 ML PO SCH (13:26)
[2023-11-13] MEDS: NICOTINE 14 MG/24 HR PATCH TD STA (13:30)
--- NOTE | 2023-11-13 13:31 | Gastrointestinal Consultation ---
Date of Consultation November 13, 2023 Assessment & Plan (1) Alcoholic hepatitis: -Check acute hepatitis panel. -Patient continues on NAC as initiated by primary team. -Continue to monitor INR, metabolic panel, & LFTs to calculate DF. If worsening, consider transfer to a liver center. Lille score to be calculated around day 5- 7. -Add Prednisolone 40 mg daily. -Advise social work involvement if patient interested in alcohol rehabilitation as it is the recommendation to discontinue alcohol use. Supervising Physician Co-Signing Physician Notes I personally saw and examined the patient. I have reviewed the chart and agree with the documentation provided by the GRAIN OPERATOR including discussion about the assessment, treatment and plan. Briefly, 33 yo male with PMH of depression, alcoholism, PTSD, panic disorder, social anxiety disorder, GERD, concentration issues, opioid abuse. He was on Suboxone in the past, but since discontinuing this he has relied more on alcohol to control his pain/mental health issues. He notes that a friend told him a week ago that he was jaundiced. He has been feeling fatigue so he presented to the ED where he was found to have a bilirubin of 33.3, AST 224, ALT 114. CT abd/pelvis showed hepatic steatosis. INR 1.2. MELD 22 and MDF 38. Patient has etoh hepatitis with elevated bilirubin. Will start prednisolone and check Lilie score in 5-7 days. Watch for withdrawal and use benzos prn. Will check hepatitis panel given LFTs. History of Present Illness Reason for Consultation: Acute liver injury, alcoholism Attending Physician: Colin Foster MD History of Present Illness Patient is a 33 yo male with PMH of depression, alcoholism, PTSD, panic disorder, social anxiety disorder, GERD, concentration issues, opioid abuse. He was on Suboxone in the past, but since discontinuing this he has relied more on alcohol to control his pain/mental health issues. He notes that a friend told him a week ago that he was jaundiced. He has been feeling fatigue so he presented to the ED where he was found to have a bilirubin of 33.3, AST 224, ALT 114. CT abd/pelvis showed hepatic steatosis. INR 1.2. He notes that he has been drinking alcohol sin age 15 and has had legal issues surrounding his drug & alcohol use. He states he drinks 6 beers per day or a 1/2 bottle of vodka. He utilizes medical marijuana. He has a normal ethyl alcohol level. Acetaminophen level was unable to be calculated due to the sample being icteric. Discriminant function 38. MELD on admission 22. INR now 1.1. T bili has improved to 26.7. D bili 17.4. AST 184, ALT 98. Allergies Allergy/AdvReac Type Severity Reaction Status Date / Time No Known Allergies Allergy Unverified 11/13/23 02:49 Home Medications Medication Instructions Recorded Confirmed Type ascorbic acid (vitamin C) 1,000 mg 1 g PO QAM 11/13/23 11/13/23 History tablet (Vitamin C) cholecalciferol (vitamin D3) 50 50 mcg PO DAILY 11/13/23 11/13/23 History mcg (2,000 unit) capsule (Vitamin D3) citalopram 40 mg tablet 40 mg PO QAM 11/13/23 11/13/23 History clonazepam 1 mg tablet 0.5 - 1 mg PO DIRECTED 11/13/23 11/13/23 History dextroamphetamine-amphetamine ER 30 mg PO QAM 11/13/23 11/13/23 History 30 mg 24hr capsule,extend release diphenhydramine HCl 25 mg tablet 25 - 50 mg PO HS PRN Sleep 11/13/23 11/13/23 History (Benadryl Allergy) multivitamin 1 tab PO DAILY 11/13/23 11/13/23 History Patient History Social History Smoking Status: Former smoker Tobacco Type: E-cigarettes / Vaping Hx Alcohol Use: Yes Alcohol type: beer and hard liquor Hx Substance Use: No Preferred Language: Syriac Communication Ability: Effective Test Puller Required: No Beliefs That Will Affect Care: None marital status: Single Current Living Situation: Parent Feels Safe at Home: Yes Assistive Devices: None Review of Systems Constitutional: + fatigue; no fever and no chills Gastrointestinal: no abdominal pain and no change in bowel habits Integumentary: + yellowing of the skin Psychiatric: no problem reported Physical Exam Constitutional: well developed Respiratory: normal respiratory effort Cardiovascular: Rate/Rhythm: regular rate Gastrointestinal (Abdomen): normal bowel sounds, soft, nontender, no hepatosplenomegaly Musculoskeletal: Head/Neck/Chest: normocephalic Skin: + jaundice Psychiatric: Orientation: alert and oriented x 3 Results & Data Vital Signs (Past 12 Hours) Vital Signs Temp Pulse Pulse Resp BP BP Pulse Ox 11/13/23 11:08 37.0 C 87 16 131/85 94 11/13/23 07:23 36.4 C L 91 H 18 121/76 93 11/13/23 04:06 80 21 96/77 L 11/13/23 03:00 82 25 H 111/73 94 11/13/23 02:57 79 22 125/94 96 11/13/23 02:50 87 16 125/94 97 11/13/23 01:27 91 H O2 Del Method 11/13/23 11:08 Room Air 11/13/23 07:23 Room Air 11/13/23 04:06 11/13/23 03:00 11/13/23 02:57 11/13/23 02:50 Room Air 11/13/23 01:27 PG Care Time/CCT Total # of Minutes Spent Total Time Spent with Patient: Total time spent is greater than 50% in coordination of care (as documented) at patient's floor/unit and/or counseling patient: Coding Level of Care Code 68037 IN/OBS CONSULT LVL 4,60M Diagnoses Alcoholic hepatitis K70.10
--- NOTE | 2023-11-13 13:40 | Hospitalist Progress Note ---
Date of Service November 13, 2023 Assessment & Plan (1) Acute alcoholic liver disease: Plan: 33-year-old male with past medical history significant for major depression, ongoing alcoholism, PTSD, panic disorder, social anxiety disorder, GERD anxiety disorder, concentration deficit, history of opioid use history of drugs in the past and was on Suboxone which was tapered off two and half years ago comes with abdominal pain going on for about 1 month and also noticed jaundice for last 1 week and feeling weak ,fatigue ,tired and came to ER and found to have total bilirubin 33.3, AST 224, ALT 114, UA is positive, potassium 2.[address] abdomen pelvis with IV contrast shows hepatic steatosis otherwise unremarkable study. Alcoholic hepatitis- Labs improved from admission. Total bilirubin 33-> 27, direct bili 17, AST/ALT 224/114->184/98, ALP 280. INR 1.2->1.1. Alc level normal. States last alcohol use was 5 days ago. Denies any new medications. Denies any drug use. Uses medical marijuana, vapes. UDS positive for amphetamine/MDMA as he is on aderall. Monoscreen negative. - Started on NAC on admission. - On admission, DF 38, MELD 22. Seen by GI and started on prednisolone 40 mg daily. ' - Continue to monitor daily INR, BMP, LFTs to calculate DF. If worsening, consider transfer to a liver center. Lilie score to be calculated around day 5- 7. - Follow up on pending labs Alcohol abuse- states last alcohol use was 5 days ago. States he tapered himself at home after DUI. No S/S of withdrawal. Will have ativan prn per AWSS scale. Discontinue gabapentin taper. On thiamine, folate Hypokalemia- repleted, recheck in am Hypophosphatemia- repleted, recheck in am Hyponatremia- resolved Abnormal UA- does not suggest UTI. No symptoms. likely related to bilirubinuria and asymptomatic bacteriuria. Will discontinue empiric antibiotics. Anxiety- Continue home Klonopin Depression/PTSD/Panic disorder- continue home celexa ADD- on adderall Tobacco abuse- vapes. on nicoderm patch per request DVT ppx- sc lovenox Dispo- TBD. Pending medical stability Admission and Anticipated Discharge Date Admission Date: November 13, 2023 Subjective Patient was seen and examined at bedside. States he feels somewhat better. Still with some RUQ discomfort. No N/V. No fever or chills. States last drink was 5 days ago, states he tapered him off of the hard liquor. Uses medical marijuana and vapes. Denies any other substance abuse. Review of Systems Review of Systems: All systems reviewed & are unremarkable except as noted in Subjective Physical Exam Physical Exam: General: Sitting comfortably in bed, not in distress, on room air HEENT: Scleral icterus, EOMI, FLYNN, MMM Chest: Clear breath sounds bilaterally, no wheezes or crackles CVS: Regular rate and rhythm, normal heart sounds, no murmur Abdomen: Soft, not distended, normal bowel sounds Neuro: Awake, alert, oriented, conversing well, non focal Extremities: No cyanosis, clubbing or edema Results & Data Results & Data Vital Signs (Past 12 Hours) Vital Signs Temp Pulse Pulse Resp BP BP Pulse Ox 11/13/23 11:08 37.0 C 87 16 131/85 94 11/13/23 07:23 36.4 C L 91 H 18 121/76 93 11/13/23 04:06 80 21 96/77 L 11/13/23 03:00 82 25 H 111/73 94 11/13/23 02:57 79 22 125/94 96 11/13/23 02:50 87 16 125/94 97 O2 Del Method 11/13/23 11:08 Room Air 11/13/23 07:23 Room Air 11/13/23 04:06 11/13/23 03:00 11/13/23 02:57 11/13/23 02:50 Room Air Laboratory Results Short CBC 11/13/23 11/13/23 Range/Units 01:14 06:31 WBC 11.57 H 10.52 (4.8-10.8) K/ul Hgb 10.8 L 9.2 L (14.0-18.0) g/dl Hct 31.6 L 27.7 L (42.0-52.0) % Plt Count 224 195 (130-400) K/uL BMP 11/13/23 11/13/23 01:14 06:31 Sodium 132 L 133 L Potassium 2.8 L 3.4 L D Chloride 95 L 100 Carbon Dioxide 25 24 BUN 9 7 Creatinine TNP TNP Glucose 108 H 126 H Calcium 7.8 L 7.2 L Cardiac Enzymes 11/13/23 Range/Units 01:14 Total Creatine Kinase 121 (30-223) U/L Liver Function 11/13/23 11/13/23 Range/Units 01:14 06:31 Total Bilirubin 33.3 H 26.7 H (0.2-1.0) mg/dl Direct Bilirubin 17.4 H (0-0.2) mg/dl AST 224 H 184 H (13-39) U/L ALT 114 H 98 H (7-52) U/L Alkaline Phosphatase TNP 280 H Albumin 3.6 3.1 L (3.4-5.0) gm/dl Urine 11/13/23 Range/Units 01:14 Urine Color Dark Yellow Urine Appearance Cloudy A (Clear) Urine pH 6.5 (4.5-7.5) Ur Specific [place] 1.026 (1.000-1.030) Urine Protein 1+ H (Negative) Urine Glucose (UA) Negative (Negative)
[2023-11-13 14:36] LABS: HepB Surface Ag with confirm Negative (Negative)
[2023-11-13 14:40] LABS: HepC Ab Rflx HepCQuant RNA Negative (Negative)
[2023-11-13] MEDS: LORazepam 1 MG in SYRINGE 0.5 ML IV PRN (21:30)
[2023-11-13] MEDS ORDERED: GABAPENTIN 600 MG TAB PO SCH (23:45)
[2023-11-14 02:52] LABS: Reference Quest Test 1 REPORT; Reference Quest Test 2 REPORT
[2023-11-14 06:15] LABS: Hematocrit (blood only) 27.6 % (42.0-52.0); Hemoglobin 9.4 g/dl (14.0-18.0); Mean Corpuscular Hemoglobin 34.7 pg (25.0-34.0); Mean Corpuscular Hgb Conc 34.1 g/dL (32.0-36.0); Mean Corpuscular Volume 101.8 fL (80.0-100.0); Mean Platelet Volume 12.8 fL (9.4-12.4); Platelet Count 201 K/uL (130-400); RDW Coefficient of Variation 19.5 % (11.5-14.5); RDW Standard Deviation 71.6 fL (36.4-46.3); Red Blood Count 2.71 M/uL (4.70-6.10); White Blood Count 9.74 K/ul (4.8-10.8)
[2023-11-14 06:39] LABS: INR 1.1 (0.9-1.1); Prothrombin Time 11.8 Seconds (9.0-12.0)
[2023-11-14 07:00] LABS: Vitamin B12 > 1500 pg/ml (180-914)
[2023-11-14 07:06] LABS: Alkaline Phosphatase 281 U/L (34-104); Blood Urea Nitrogen 5 mg/dl (6-23)
[2023-11-14 07:07] LABS: Alanine Aminotransferase 103 U/L (7-52); Anion Gap 9 (3-11); Aspartate Aminotransferase 180 U/L (13-39); Bilirubin,Total 27.5 mg/dl (0.2-1.0); Calcium 8.2 mg/dl (8.6-10.3); Carbon Dioxide 22 mmol/L (21-32); Chloride 102 mmol/L (98-107); Glucose 133 mg/dl (70-99(Fasting)); Phosphorus 1.7 mg/dl (2.5-4.9); Potassium 3.4 mmol/L (3.5-5.1); Sodium 133 mmol/L (136-145); Total Protein 5.4 gm/dl (6.0-8.3)
[2023-11-14 07:08] LABS: Bilirubin Direct 18.8 mg/dl (0-0.2); Magnesium 2.3 mg/dl (1.7-2.4)
[2023-11-14] MEDS ORDERED: POTASSIUM PHOS 3 MMOL/1 ML INFUSION IV STA (07:24)
[2023-11-14] MEDS: POTASSIUM PHOSPHATE 24 MMOL in SODIUM CHLORIDE 0.9% 500 ML IV ONE (08:57)
[2023-11-14] MEDS: CITALOPRAM 20 MG TAB PO SCH (08:59)
--- NOTE | 2023-11-14 12:18 | Hospitalist Progress Note ---
Date of Service November 14, 2023 Assessment & Plan (1) Acute alcoholic liver disease: Plan: 33-year-old male with past medical history significant for major depression, ongoing alcoholism, PTSD, panic disorder, social anxiety disorder, GERD anxiety disorder, concentration deficit, history of opioid use history of drugs in the past and was on Suboxone which was tapered off two and half years ago comes with abdominal pain going on for about 1 month and also noticed jaundice for last 1 week and feeling weak ,fatigue ,tired and came to ER and found to have total bilirubin 33.3, AST 224, ALT 114, UA is positive, potassium 2.[address] abdomen pelvis with IV contrast shows hepatic steatosis otherwise unremarkable study. Alcoholic hepatitis- Labs improved from admission. Total bilirubin 33-> 27->27, direct bili 17->18, AST/ALT 224/114->184/98->180/103, ALP 280->281. INR 1.2- >1.1. Alc level normal. States last alcohol use was 6 days ago. Denies any new medications. Denies any drug use. Uses medical marijuana, vapes. UDS positive for amphetamine/MDMA as he is on aderall. Monoscreen negative. - Started on NAC on admission. - On admission, DF 38, MELD 22. Seen by GI and started on prednisolone 40 mg daily. ' - Continue to monitor daily INR, BMP, LFTs to calculate DF. If worsening, consider transfer to a liver center. Lilie score to be calculated around day 5- 7. - Follow up on pending labs Alcohol abuse- states last alcohol use was 6 days ago. States he tapered himself at home. No S/S of withdrawal. Will have ativan prn per AWSS scale. Discontinued gabapentin taper. On thiamine, folate Hypokalemia- repleted, recheck in am Hypophosphatemia- repleted, recheck in am Hyponatremia- resolved Anxiety- Continue home Klonopin Depression/PTSD/Panic disorder- continue home celexa. Dose reduced for liver dysfunction. ADD- on adderall Tobacco abuse- vapes. on nicoderm patch DVT ppx- ambulation Dispo- TBD. Pending medical stability Time spent- approx 50 mins Admission and Anticipated Discharge Date Admission Date: November 13, 2023 Subjective Patient was seen and examined at bedside. Feels slightly better. Appetite is improved. No fever, chills, chest pain, shortness of breath, N/V. Review of Systems Review of Systems: All systems reviewed & are unremarkable except as noted in Subjective Physical Exam Physical Exam: General: Sitting comfortably in bed, not in distress, on room air HEENT: Scleral icterus, EOMI, FLYNN, MMM Chest: Clear breath sounds bilaterally, no wheezes or crackles CVS: Regular rate and rhythm, normal heart sounds, no murmur Abdomen: Soft, not distended, normal bowel sounds Neuro: Awake, alert, oriented, conversing well, non focal Extremities: No cyanosis, clubbing or edema Results & Data Results & Data Vital Signs (Past 12 Hours) Vital Signs Temp Pulse Pulse Resp BP Pulse Ox O2 Del Method 11/14/23 10:40 36.7 C 83 16 120/68 96 Room Air 11/14/23 10:15 73 11/14/23 07:35 36.4 C L 70 17 94/61 L 95 Room Air 11/14/23 02:17 36.5 C 80 18 117/74 93 Room Air Laboratory Results Short CBC 11/14/23 Range/Units 05:34 WBC 9.74 (4.8-10.8) K/ul Hgb 9.4 L (14.0-18.0) g/dl Hct 27.6 L (42.0-52.0) % Plt Count 201 (130-400) K/uL BMP 11/14/23 05:34 Sodium 133 L Potassium 3.4 L Chloride 102 Carbon Dioxide 22 BUN 5 L Creatinine TNP Glucose 133 H Calcium 8.2 L Liver Function 11/14/23 Range/Units 05:34 Total Bilirubin 27.5 H (0.2-1.0) mg/dl Direct Bilirubin 18.8 H (0-0.2) mg/dl AST 180 H (13-39) U/L ALT 103 H (7-52) U/L Alkaline Phosphatase 281 H (34-104) U/L Albumin 3.0 L (3.4-5.0) gm/dl
--- NOTE | 2023-11-14 13:03 | Gastroenterology Progress Note ---
Date of Service November 14, 2023 Assessment & Plan (1) Alcoholic hepatitis: Plan: -Continue to monitor PT/INR, LFTs, & metabolic panel -Trend discriminant function; plan to calculate Lille score day 5-7. -Patient has been counseled regarding the importance of alcohol cessation. -Would not expect bilirubin to normalize during inpatient admission; continue to trend. -Patient does express interest in hepatology follow-up as outpatient. -Await results of infectious hepatitis panel pending. -Continue Prednisolone 40 mg daily. Admission and Anticipated Discharge Date Admission Date: November 13, 2023 Supervising Physician Co-Signing Physician Notes I personally saw and examined the patient. I have reviewed the chart and agree with the documentation provided by the LOGISTICS ADMINISTRATOR including discussion about the assessment, treatment and plan. Briefly, doing better. LFts have come down but bili total and db still high. Supportive care for now. Subjective Patient is a 33 yo male with alcoholic hepatitis. He denies new symptoms or complaints today. Labs as follows: T bili 27.5, D bili 18.8, AST 180, ALT 103, AP 281. MELD unable to be calculated due to icteric sample affecting Cr. DF 26.6. Patient is on Prednisolone 40 mg daily. Primary team following for signs o f alcohol withdrawal. Review of Systems Gastrointestinal: no abdominal pain, no nausea, no vomiting, no coffee ground emesis, no hematemesis and no blood in stools Integumentary: + yellowing of the skin Physical Exam Constitutional: well developed Respiratory: normal respiratory effort Gastrointestinal (Abdomen): normal bowel sounds, soft, nontender, no hepatosplenomegaly Skin: + jaundice Results & Data Results & Data Vital Signs (Past 12 Hours) Vital Signs Temp Pulse Pulse Resp BP Pulse Ox O2 Del Method 11/14/23 10:40 36.7 C 83 16 120/68 96 Room Air 11/14/23 10:15 73 11/14/23 07:35 36.4 C L 70 17 94/61 L 95 Room Air 11/14/23 02:17 36.5 C 80 18 117/74 93 Room Air PG Care Time/CCT Total # of Minutes Spent Total Time Spent with Patient: Total time spent is greater than 50% in coordination of care (as documented) at patient's floor/unit and/or counseling patient: Coding Level of Care Code 57755 SUB INP/OBS CARE 3/50MIN Diagnoses Alcoholic hepatitis K70.10
[2023-11-15] MEDS ORDERED: GABAPENTIN 600 MG TAB PO SCH (04:00)
[2023-11-15 06:24] LABS: Hematocrit (blood only) 29.5 % (42.0-52.0); Hemoglobin 9.5 g/dl (14.0-18.0); Mean Corpuscular Hemoglobin 34.2 pg (25.0-34.0); Mean Corpuscular Hgb Conc 32.2 g/dL (32.0-36.0); Mean Corpuscular Volume 106.1 fL (80.0-100.0); Nucleated RBC # (auto) 0.09 K/uL (0.00-0.12); Platelet Count 240 K/uL (130-400); RDW Standard Deviation 77.2 fL (36.4-46.3); Red Blood Count 2.78 M/uL (4.70-6.10); White Blood Count 8.86 K/ul (4.8-10.8)
[2023-11-15 06:29] LABS: BUN Creatinine Ratio 9.5 (10-20); Calcium 7.9 mg/dl (8.6-10.3); Est GFR (African American) 140.5 ml/min; Est GFR (Non-African American) 121.2 ml/min; Potassium 3.7 mmol/L (3.5-5.1)
[2023-11-15 06:34] LABS: Prothrombin Time 10.9 Seconds (9.0-12.0)
[2023-11-15 06:51] LABS: Albumin Level 3.1 gm/dl (3.4-5.0); Bilirubin,Total 21.7 mg/dl (0.2-1.0); Magnesium 2.4 mg/dl (1.7-2.4); Total Protein 5.2 gm/dl (6.0-8.3)
[2023-11-15 10:07] LABS: Bilirubin Direct 14.4 mg/dl (0-0.2)
[2023-11-15 12:33] LABS: Hepatitis A Antibody IgM NON-REACTIVE (NON-REACTIVE); Hepatitis B Core Antibody IgM NON-REACTIVE (NON-REACTIVE)
--- NOTE | 2023-11-15 12:46 | Gastroenterology Progress Note ---
Date of Service November 15, 2023 Assessment & Plan (1) Alcoholic hepatitis: Plan: -Continue Prednisolone 40 mg daily -Continue to follow LFTs & PT/INR -Lille score to be calculated day 5-7 -Encouraged alcohol cessation Admission and Anticipated Discharge Date Admission Date: November 13, 2023 Supervising Physician Co-Signing Physician Notes I personally saw and examined the patient. I have reviewed the chart and agree with the documentation provided by the CT MRI TECHNOLOGIST including discussion about the assessment, treatment and plan. Bili is down to 21.7 and rest of lfts following. He is responding to prednisolone. I suspect Lilie score will be better at 5-7 days. As long as trends in right direction, we can consider discharge soon with f/up with GI and PCP. Pt needs AA and consider rehab. Hep panel negative which is good news. Subjective Patient is a 33 yo male with alcoholic hepatitis. Patient's labs demonstrate some improvement this AM. T bili is 21.7, AST 183, ALT 114, AP 271. DF is 16.6 at present. Jaundice appears to be slightly better. Patient denies other acute issues at present. He continues on Prednisolone. Infectious hepatitis panel negative. Review of Systems Gastrointestinal: no abdominal pain Integumentary: + yellowing of the skin Physical Exam Constitutional: well developed Respiratory: normal respiratory effort Psychiatric: Orientation: alert and oriented x 3 Results & Data Results & Data Vital Signs (Past 12 Hours) Vital Signs Temp Pulse Pulse Resp BP Pulse Ox O2 Del Method 11/15/23 11:45 61 11/15/23 10:49 36.7 C 75 16 129/76 98 Room Air 11/15/23 07:43 36.6 C 70 16 102/61 97 Room Air 11/15/23 02:32 36.8 C 72 20 119/74 98 Room Air PG Care Time/CCT Total # of Minutes Spent Total Time Spent with Patient: Total time spent is greater than 50% in coordination of care (as documented) at patient's floor/unit and/or counseling patient: Coding Level of Care Code 30749 SUB INP/OBS CARE 2/35MIN Diagnoses Alcoholic hepatitis K70.10
--- NOTE | 2023-11-15 13:07 | Hospitalist Progress Note ---
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 abdomen pelvis with IV contrast shows hepatic steatosis otherwise unremarkable study. He is being managed for the following: Alcoholic hepatitis- Labs improved from admission. Total bilirubin 33-> 27->27->21, direct bili 17->18->14, AST/ALT 224/114->184/98->180/103->183/114, ALP 280->281->271. INR normal. Alc level normal. 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 Denies any new medications. Denies any drug use. Uses medical marijuana, vapes. UDS positive for amphetamine/MDMA as he is on aderall. Monoscreen negative. s/p NAC Rx. Hep panel neg, EBV serology pending. On admission, DF 38, MELD 22. Seen by GI and started on prednisolone 40 mg daily. ' Continue to monitor daily INR, BMP, LFTs to calculate DF. If worsening, consider transfer to a liver center. Lilie score to be calculated around day 5-7. 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 Hemoglobin has been stable. Will discontinue IV Protonix. Monitor HnH. Will utilize po protonix daily for the duration of steroid use. 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 States he tapered himself at home. No S/S of withdrawal. Will have ativan prn per AWSS scale. c/w thiamine, folate Hypokalemia- monitor and replete Hypophosphatemia- monitor and replete Hyponatremia- mild, improving. Anxiety- Continue home Klonopin Depression/PTSD/Panic disorder- continue home celexa. Dose reduced for liver dysfunction. ADD- on adderall Tobacco abuse- vapes. on nicoderm patch DVT ppx- Subcu heparin. Dispo- TBD. Pending medical stability Admission and Anticipated Discharge Date Admission Date: November 13, 2023 Subjective Patient was seen and examined at bedside. Feels better. Reports eating okay and moving bowels okay, denies new complaints. No fever, chills, chest pain, shortness of breath, N/V. Physical Exam Physical Exam: General: lying comfortably in bed, not in distress, on room air HEENT: Scleral icterus, EOMI, FLYNN, MMM Chest: Clear breath sounds bilaterally, no wheezes or crackles CVS: Regular rate and rhythm, normal heart sounds, no murmur Abdomen: Soft, not distended, normal bowel sounds Neuro: Awake, alert, oriented, conversing well, non focal Extremities: No cyanosis, clubbing or edema Results & Data Results & Data Vital Signs (Past 12 Hours) Vital Signs Temp Pulse Pulse Resp BP Pulse Ox O2 Del Method 11/15/23 11:45 61 11/15/23 10:49 36.7 C 75 16 129/76 98 Room Air 11/15/23 07:43 36.6 C 70 16 102/61 97 Room Air 11/15/23 02:32 36.8 C 72 20 119/74 98 Room Air
[2023-11-15 17:07] LABS: Epstein Barr Virus Early Ag Ab <9.00 U/mL
[2023-11-15] MEDS: HEPARIN SOD 5,000 UNIT/0.5 ML VIAL SQ SCH (20:12)
[2023-11-16 06:34] LABS: Hematocrit (blood only) 31.8 % (42.0-52.0); Hemoglobin 10.1 g/dl (14.0-18.0); Mean Corpuscular Hemoglobin 33.7 pg (25.0-34.0); Mean Corpuscular Hgb Conc 31.8 g/dL (32.0-36.0); Mean Platelet Volume 12.9 fL (9.4-12.4); Nucleated RBC # (auto) 0.14 K/uL (0.00-0.12); Nucleated RBC % (auto) 1.6 %; Platelet Count 273 K/uL (130-400); RDW Coefficient of Variation 20.1 % (11.5-14.5); RDW Standard Deviation 76.8 fL (36.4-46.3); White Blood Count 9.01 K/ul (4.8-10.8)
[2023-11-16 06:53] LABS: Prothrombin Time 11.2 Seconds (9.0-12.0)
[2023-11-16 06:56] LABS: Albumin Level 3.2 gm/dl (3.4-5.0); BUN Creatinine Ratio 13.6 (10-20); Bilirubin,Total 17.5 mg/dl (0.2-1.0); Calcium 8.1 mg/dl (8.6-10.3); Creatinine Clr Calc Pharmacy 189.2 ml/min; Est GFR (African American) 147.2 ml/min; Magnesium 2.3 mg/dl (1.7-2.4); Phosphorus 1.9 mg/dl (2.5-4.9); Potassium 3.9 mmol/L (3.5-5.1); Total Protein 5.5 gm/dl (6.0-8.3)
[2023-11-16] MEDS: PANTOprazole 40 MG TAB PO SCH (09:10)
--- NOTE | 2023-11-16 09:35 | Communication Note ---
Date of Service: November 16, 2023 Patient is a 33 yo male with alcoholic hepatitis. He is responding well to Prednisolone. T bili did trend down to 17.5 today. AST 188, ALT 131. Day 5 Lille score today is 0.005 indicative of a good prognosis with 6 month survival rate of 85%. Patient has trended in the correct direction on Prednisolone 40 mg daily. Would advise continuation for a total of 28 days and subsequent quick taper. Discussed with primary team. Patient will need close follow-up with PCP and GI/hepatology to continue to monitor his labs. If patient is discharged, I have placed outpatient lab orders to recheck CMP & PT/INR Sunday11/19/23.
--- NOTE | 2023-11-16 12:36 | Discharge Summary ---
Date of Service November 16, 2023 Admission HPI Per Admitting Provider 33-year-old male with past medical history significant for major depression, ongoing alcoholism, PTSD, panic disorder, social anxiety disorder, GERD anxiety disorder, concentration deficit, history of opioid use history of drugs in the past and was on Suboxone which was tapered off two and half years ago comes with abdominal pain going on for about 1 month and also noticed jaundice for last 1 week and feeling weak ,fatigue ,tired and came to ER and found to have total bilirubin 33.3, AST 224, ALT 114, UA is positive, potassium 2.[address] abdomen pelvis with IV contrast shows hepatic steatosis otherwise unremarkable study. Patient denies any headache. No dizziness. Vision is okay. No runny nose. No cough. No sore throat. Currently no chest pain or shortness of breath. No nausea. Some abdominal discomfort. Has chronic diarrhea. A week ago he had black stools. States has some difficulty micturition says he noticed Some blood in the urine. Afebrile. States he is drinking alcohol since age of 15 on and off. But since last 2.5 years ago when he was tapered off Suboxone he started drinking heavily. Currently drinks 6 beers or half bottle of vodka daily. Vapes every day. Has medical marijuana. States he stopped drinking 4 days ago. Says when he came into the ER he was slightly shaky and got Ativan. Mother is in the room. Alert and oriented x 3 and able to give history. Past medical history. As mentioned above Past surgical history. None Social history. Vapes nicotine. Has medical marijuana. Drinks 6 packs to half bottle of vodka daily. History of heroin in the past. Family history. No family history on file. Admission Exam Per Admitting Provider General-Not in acute distress Head- atraumatic Eyes- PERRL,Icterus present ENT- oropharynx clear Neck- supple, no JVD. Lungs- clear to auscultation no wheezing or crackles Heart- regular rhythm; no murmur, no gallop. Abdomen- normal bowel sounds, soft, mild diffuse tenderness, no distension Extremities- no pretibial edema, no erythema seen Neuro- alert, oriented x 3; PERRL, no facial palsy; no dysarthria; moves extremities. Skin- diffuse yellow discoloration Principal Diagnosis Alcoholic hepatitis Concern of GI bleed, ruled out Alcohol abuse Discharge Exam General: lying comfortably in bed, not in distress, on room air HEENT: Scleral icterus, EOMI, FLYNN, MMM Chest: Clear breath sounds bilaterally, no wheezes or crackles CVS: Regular rate and rhythm, normal heart sounds, no murmur Abdomen: Soft, not distended, normal bowel sounds Neuro: Awake, alert, oriented, conversing well, non focal Extremities: No cyanosis, clubbing or edema Discharge Data Allergies Allergy/AdvReac Type Severity Reaction Status Date / Time No Known Allergies Allergy Unverified 11/13/23 02:49 Consultations 11/13/23 04:47 ED Decision to Admit Stat 11/13/23 08:00 Consult Gastroenterology Routine Ordered Studies 11/13/23 01:10 CT Abd and Pelvis [CT abd pelvis IV con only] Stat Hospital Course (1) Acute alcoholic liver disease: 33-year-old male w/ PMH of major depression, ongoing alcoholism(last drink 4-5 days ago [employer]), PTSD, panic disorder, social anxiety disorder, GERD anxiety disorder, concentration deficit, history of opioid use, history of drugs in the past and was on Suboxone which was tapered off two and half years ago comes with abdominal pain going on for about 1 month and also noticed jaundice for last 1 week [employer] and feeling weak ,fatigue ,tired and came to ER and found to have total bilirubin 33.3, AST 224, ALT 114, UA is positive, potassium 2.[address] abdomen pelvis with IV contrast shows hepatic steatosis otherwise unremarkable study. He was managed for the following: Alcoholic hepatitis- Labs improved from admission. Total bilirubin 33-> 27->27->21 ->17 direct bili 17->18->14 ->10 AST/ALT 224/114->184/98->180/103->183/114 - > 188/131; ALP 280->281->271 - >258 INR normal. Alc level normal. Per pt, last alcohol use was 4 days ago [employer]He is out of withdrawal window. Denies any new medications. Denies any drug use. Uses medical marijuana, vapes. UDS positive for amphetamine/MDMA as he is on aderall. Monoscreen negative. s/p NAC Rx. Hep panel neg, EBV serology pending. On admission, DF 38, MELD 22. Seen by GI and started on prednisolone 40 mg daily. '28 day therapy w/ plan for taper after the course. pt made aware, he needs f/u w/ GI closely. d/w GI, ok to dc from their POV w/ close f/u w/ GI. Day lille score is 0.005 indicative of a good prognosis with 6 month survival rate of 85% per gi. Concern of GI bleed: Reported having black stool about a week ago [employer], patient was started on IV Protonix twice daily at admission, FOBT was sent 11/14, came back negative. Hemoglobin has been stable. Will utilize po protonix daily for the duration of steroid use. Alcohol abuse- states last alcohol use was 4 days ago [employer]. States he tapered himself at home. No S/S of withdrawal. he denies inpatient rehab and agreeable to seek help including AA group as OP. Hypokalemia- monitor and replete Hypophosphatemia- monitor and replete Hyponatremia- mild, improving. Anxiety- Continue home Klonopin Depression/PTSD/Panic disorder- continue home celexa. Dose reduced for liver dysfunction. ADD- on adderall Tobacco abuse- vapes. on nicoderm patch DVT ppx- Subcu heparin. Dispo- TBD. Pending medical stability Patient is being discharged home with following instruction at the point of discharge: Follow-up with your primary care physician within a week time and likely you will need labs CBC/CMP/magnesium/phosphorus. You will be discharged on prednisolone 40 mg daily to complete 28 days of therapy, then you will need tapering dose of steroid. You will be on pantoprazole for the duration of his steroid to prevent any acid peptic disease. You will need to follow-up with your GI doctor in about 2 weeks time for ongoing evaluation of your liver condition and you will also need guidance with tapering dose of prednisolone from your GI office or PCP office. You are being discharged with one month worth of prednisolone doses, please be in contact with your GI office or PCP office for further guidance on prednisolone therapy/tapering the dose down to discontinuation. As you have already initiated yourself very appreciate effort of quitting alcohol, continue to maintain abstinence. You might benefit from joining alcoholic anonymous group as an outpatient to help maintain abstinence from alcohol. Your Celexa dose has been reduced to account for liver function. Take your medications as prescribed. Please make sure that you are able to get your medications today by calling your pharmacy before you leave the hospital so that your treatment continuity is not broken. Home Health Attestation I certify that this patient is under my care and that I, or a physicians assistant broker working with me, had a face to-face encounter that meets the home health [id number] encounter requirements with this patient. The encounter with the patient was in whole, or in part, for the following medical condition, which is the primary reason for home health care (list medical condition): I certify that, based on my findings, the following services are medically necessary home health services: My clinical findings support the need for the above services because: Further, I certify that my clinical findings support that this patient is homebound (i.e. absences from home require considerable and taxing effort and are for medical reasons or christianity services or infrequently or of short duration when for other reasons) because: Certification for Home Health Services: Based on the above findings, I certify that this patient is confined to the home and needs intermittent detention care, physical therapy and/or speech therapy or continues to need occupational therapy. The patient is under my care, and I have initiated the establishment of the plan of care. This patient will be followed by a physician who will periodically review the plan of care. Total Time Total Time Spent Total Time Spent (In Minutes): 45 Discharge Plan Discharge Items Patient Disposition: Home - Self-Care Reason For Visit: HEPATITIS/ACUTE LIVER INJURY, ALCOHOLISM Discharge Diagnosis: Alcoholic hepatitis Concern of GI bleed, ruled out Alcohol abuse Condition on Discharge: Fair Activity: Resume your previous activity Non-emergency contact: Primary Care Provider Call non-emergency contact if: you have any medication questions, your symptoms worsen and your temperature is above 101 Follow-up/Referrals: Edna Faulkner MD [Primary Care Provider] - Diet: Regular Addtl Attending Provider Instructions: Follow-up with your primary care physician within a week time and likely you will need labs CBC/CMP/magnesium/phosphorus. You will be discharged on prednisolone 40 mg daily to complete 28 days of therapy, then you will need tapering dose of steroid. You will be on pantoprazo le for the duration of his steroid to prevent any acid peptic disease. You will need to follow-up with your GI doctor in about 2 weeks time for ongoing evaluation of your liver condition and you will also need guidance with tapering dose of prednisolone from your GI office or PCP office. You are being discharged with one month worth of prednisolone doses, please be in contact with your GI office or PCP office for further guidance on prednisolone therapy/tapering the dose down to discontinuation. As you have already initiated yourself very appreciate effort of quitting alcohol, continue to maintain abstinence. You might benefit from joining alcoholic anonymous group as an outpatient to help maintain abstinence from alcohol. Your Celexa dose has been reduced to account for liver function. Take your medications as prescribed. Please make sure that you are able to get your medications today by calling your pharmacy before you leave the hospital so that your treatment continuity is not broken. Pending Studies at Discharge: No Stand-Alone Forms: My [facility], Smoking Cessation Medications and DC Order Prescriptions: New citalopram 20 mg Tablet 20 mg PO QAM Qty: 30 0RF pantoprazole 40 mg Tablet,Delayed Release (Dr/Ec) 40 mg PO QAM Qty: 30 0RF prednisolone sodium phosphate 10 mg tablet,disintegrating 10 mg PO UD 31 Days Qty: 117 0RF Rx Instructions: 4 tabs daily x 24 days, then 3 tabs x 1 week. folic acid 1 mg tablet 1 mg PO DAILY Qty: 30 0RF thiamine HCl (vitamin B1) 100 mg tablet 100 mg PO DAILY Qty: 30 0RF Continued multivitamin Tablet 1 tab PO DAILY ascorbic acid (vitamin C) [Vitamin C] 1,000 mg Tablet 1 g PO QAM clonazepam 1 mg tablet 0.5 - 1 mg PO DIRECTED Rx Instructions: Take 1 tab AM & PM, TAKE 0.5 TAB @ NOON dextroamphetamine-amphetamine 30 mg capsule,extended release 24hr 30 mg PO QAM cholecalciferol (vitamin D3) [Vitamin D3] 50 mcg (2,000 unit) Capsule 50 mcg PO DAILY diphenhydramine HCl [Benadryl Allergy] 25 mg Tablet 25 - 50 mg PO HS PRN (Reason: Sleep) Discontinued citalopram 40 mg tablet 40 mg PO QAM Discharge Orders: Discharge Order (Routine); Ordered 11/16/23 Ordered By: Vida Smith Admission Data Admit Date/Time: 11/13/23 03:53 Attending Provider: Vida Smith Admit Provider: Jose Solorzano Primary Care Provider: Edna Faulkner Other Providers: Andrew Valencia; Jose Solorzano
[2023-11-16] MEDS ORDERED: GABAPENTIN 600 MG TAB PO SCH (16:00)
[2023-11-18 16:36] LABS: Amphetamine Urine, Confirm 3111 ng/mL (<250); MDA negative; MDEA negative; MDMA (Ecstasy) Urine, Confirm negative; Marijuana Quant, GCMS Urine >5000 ng/mL (<5); Methamphetamine, Ur Confirm NEGATIVE ng/mL (<250)
== END 2023-11-16 14:07 | disposition home or self-care (01) | DRG 433 ==
LOC: ED 00:49 → 4W 03:53 → SUATTDRO 03:53 → 4W 05:11